=== PATIENT | female | born 1960 | race Caucasian/White ===

== ENCOUNTER 2021-04-02 10:44 | Outpatient (RCR) | payer MEDICARE, MEDICAID, SELFPAY ==
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
== END 2021-04-02 19:00 | disposition home or self-care (01) ==
LOC: PT 10:44
PROVIDERS: PCP Family Medicine Sports Medicine; Referring Provider Family Medicine Sports Medicine; Visit Provider Family Medicine Sports Medicine
DX: G35 Multiple sclerosis (principal)
CPT/HCPCS: 97162

== ENCOUNTER → 2022-04-09 | Outpatient (CLI) | payer MEDICARE, MEDICAID, SELFPAY ==
[2022-04-09 12:26] LABS: Absolute Lymphocyte Count 1.73 X10^3/uL (0.83-4.51); Basophil# 0.03 X10^3/uL; Basophil% 0.5 % (0-1); Eosinophil# 0.11 X10^3/uL; Eosinophils% 1.7 % (0-5); Hematocrit 41.5 % (37-47); Hemoglobin 12.8 g/dL (12.0-15.0); Lymphocyte # 1.73 X10^3/ul (0.83-4.51); Lymphocyte % 26.5 % (19-41); Mean Corp Hgb Conc 30.8 g/dL (32-36); Mean Corpuscular Hgb 30.5 pg (27.0-32.0); Mean Corpuscular Volume 98.8 fL (81-99); Mean Platelet Vol. 10.4 fl (6.2-12.0); Monocyte% 10.7 % (0-10); NRBC Flagged by Analyzer 0 % (0-5); Neutrophil # 3.95 X10^3/uL (2.7-7.7); Neutrophil % 60.3 % (47-70); Platelet Count 242 K/mm3 (150-450); RBC Distribution Width CV 15.8 % (11.6-14.6); RBC Distribution Width SD 57.1 fl (35.1-43.9); White Blood Count 6.5 K/mm3 (4.4-11.0)
[2022-04-09 12:44] LABS: T3 Total - Triiodothyronine 1.04 ng/mL (0.6-1.81)
[2022-04-09 12:48] LABS: AST(SGOT) 21 U/L (15-37); Alanine Aminotransfer ALT/SGPT 21 U/L (13-56); Albumin, Serum 3.6 g/dL (3.2-5.0); Alkaline Phosphatase 94 U/L (45-117); Anion Gap 9 (5-15); BUN 16 mg/dL (7-18); BUN/Creat Ratio 5.9 RATIO (10-20); Calcium,Total 10.2 mg/dL (8.5-10.1); Chloride 101 mmol/L (98-107); Cholesterol 166 mg/dL (200); Creatinine, Serum 2.69 mg/dL (0.55-1.02); EST Glomerular Filtration Rate 19 mL/min (>60); Est Glom Filt Rate - Afr Amer 23 mL/min (>60); Globulin 3.6 g/dL (2.2-4.2); Glucose 116 mg/dL (74-106); High Density Lipoprotein 48 mg/dL; Potassium 3.4 mmol/L (3.5-5.1); Protein, Total 7.2 g/dL (6.4-8.2); Sodium Level 139 mmol/L (136-145); T4 Free Direct 1.18 ng/dL (0.76-1.46); Thyroid Stim Hormone (TSH) 1.33 uIU/mL (0.358-3.74); Triglycerides 216 mg/dL; Very Low Density Lipoprotein 43 mg/dL (5-40)
[2022-04-09 16:50] LABS: Free T3 2.7 pg/mL (2.18-3.98)
== END | disposition home or self-care (01) ==
LOC: MFPLAB 10:13
PROVIDERS: PCP Family Medicine Sports Medicine; Visit Provider Family Medicine
DX: E03.9 Hypothyroidism, unspecified (principal); I25.10 Atherosclerotic heart disease of native coronary artery without angina pectoris
CPT/HCPCS: 36415; 80053; 80061; 84439; 84443; 84480; 84481; 85025

== ENCOUNTER → 2022-04-22 | Outpatient (CLI) | payer MEDICARE, MEDICAID, SELFPAY | END | disposition home or self-care (01) | PROVIDERS: PCP Family Medicine Sports Medicine; Referring Provider Family Medicine; Visit Provider Family Medicine | DX: R30.9 Painful micturition, unspecified (principal) | CPT/HCPCS: 87077; 87086; 87088; 87186 ==

== ENCOUNTER 2022-04-30 17:40 | Emergency (ER) | payer MEDICARE, MEDICAID, SELFPAY ==
[2022-04-30 17:43] VITALS: BP 157/106; PULSE 91; RESP 18; TEMP 36.3; O2SAT 98; BMI 29.2
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
[2022-04-30 19:07] LABS: Absolute Neutrophil Count 6.1 X10^3/uL (2.0-7.7); Basophil# 0.04 X10^3/uL; Basophil% 0.5 % (0-1); Eosinophil# 0.15 X10^3/uL; Eosinophils% 1.7 % (0-5); Hematocrit 41.4 % (37-47); Lymphocyte % 20.5 % (19-41); Mean Corp Hgb Conc 31.4 g/dL (32-36); Mean Corpuscular Hgb 30.4 pg (27.0-32.0); Mean Corpuscular Volume 96.7 fL (81-99); Mean Platelet Vol. 10.1 fl (6.2-12.0); Monocyte# 0.64 X10^3/uL; Monocyte% 7.3 % (0-10); NRBC Flagged by Analyzer 0 % (0-5); Neutrophil % 69.7 % (47-70); Platelet Count 254 K/mm3 (150-450); RBC Distribution Width CV 14.9 % (11.6-14.6); RBC Distribution Width SD 52.8 fl (35.1-43.9); Red Blood Count 4.28 M/mm3 (4.2-5.4); White Blood Count 8.8 K/mm3 (4.4-11.0)
[2022-04-30 19:49] LABS: Anion Gap 11 (5-15); BUN 27 mg/dL (7-18); BUN/Creat Ratio 8.7 RATIO (10-20); Calcium,Total 10.7 mg/dL (8.5-10.1); Chloride 102 mmol/L (98-107); Creatinine, Serum 3.09 mg/dL (0.55-1.02); EST Glomerular Filtration Rate 16 mL/min (>60); Est Glom Filt Rate - Afr Amer 20 mL/min (>60); Glucose 144 mg/dL (74-106); Potassium 3.3 mmol/L (3.5-5.1); Sodium Level 139 mmol/L (136-145)
[2022-04-30 19:57] LABS: Amphetamine Urine VISTA NEGATIVE (<1000 ng/mL); Barbiturate Urine VISTA NEGATIVE (< 200 ng/mL); Benzodiazepine Urine VISTA NEGATIVE (< 200 ng/mL); Cocaine Urine VISTA NEGATIVE (< 300 ng/mL); Ecstacy Urine VISTA NEGATIVE (< 500 ng/mL); Methadone Urine VISTA NEGATIVE (< 300 ng/mL); PCP Urine VISTA NEGATIVE (< 25 ng/mL); THC Urine VISTA NEGATIVE (< 50 ng/mL); Vista UDS pH Range 6
[2022-04-30 20:05] LABS: Alcohol, Blood (Medical)-Serum < 3.0 mg/dL
--- NOTE | 2022-04-30 20:12 | NURSING ---
CALLED CRISIS AT 2012
[2022-05-01] VITALS (11 sets, daily range): BP systolic 127–172; BP diastolic 65–91; PULSE 75–88; RESP 14–18; TEMP 35.7–36.6; O2SAT 93–100
[2022-05-01 00:56] LABS: Bedside Glucose 109 mg/dL (74-106)
[2022-05-01] MEDS: Carvedilol 3.125 MG TABLET PO ×2 (01:50→14:14)
[2022-05-01] MEDS: Atorvastatin Calcium 40 MG Tablet PO (01:50)
--- NOTE | 2022-05-01 06:21 | ED.RN ---
patient has been denied by [facility] at this time
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
--- NOTE | 2022-05-01 10:26 | CASEMGMT ---
HENRY received a call from Nayeli at [facility] [employer]. She asked about patient's whereabouts. They have received a referral for patient. Nayeli received a call this am from [facility] ([facility]) as patient did not show up for dialysis this am. Patient's daughter told [facility] that patient went to the hospital yesterday and was transferred to another facility which she did not know. HENRY let Nayeli know patient is still in the Emergency Department. HENRY passed along a message to [facility] ED HENRY. Brianda Carson BUTTON BREAKER OPERATOR ROB
--- NOTE | 2022-05-01 11:07 | CM.ED ---
HENRY Note HENRY called Jenny at Crisis. Jenny said that the only place that is reviewing patient is [facility] in [place]. Jenny said that all other facilities have declined patient including [facility], [facility] and [place]. HENRY called Suzie at [facility] and they do not take dialysis patients. HENRY called [facility] and spoke to Ebony VERDUGO and gave referral. HENRY had Devan RN attempt to give report however, the MD declined patient as they felt a bed more local is appropriate. HENRY left voice mail for Jenny at Crisis Updating her. HENRY called [facility]. Spoke to Leah.The MD is reviewing a diaylsis patient from [facility] but if he declines the patient they will review [facility] patient. HENRY updated Jenny at Crisis and advised her of review of patient at [facility]. She agreed to fax referral. HENRY called Devan at [facility] and updated her that no psych facility had been located for patient and she remains in the ED. Plan: TO be determined Jacki MENDOSA
[2022-05-01 13:25] LABS: Bedside Glucose 124 mg/dL (74-106)
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
--- NOTE | 2022-05-01 14:25 | CM.ED ---
SW Note SW received accepting information from Jenny at [facility]. Accepting MD is Dr. Mg. Patient is accepted at [facility] [address] [address] . RN to RN [phone] option #2. Patient's bed will not be ready till after 9pm. Expansion Envelope Maker Hand Tana scheduled transport for patient. Patient will leave [facility] at 6:30pm HENRY called Maddie at RN to RN number and advised patient was leaving at 6:30pm and will arrive at 9pm to [facility]. HENRY advised patient that she is going to [facility] for psych treatment. HENRY called Devan at [facility] and advised in voice mail that patient is going to [facility] for psych HENRY called Anahi at [facility] and updated her regarding patient's status and discharge plan. Anahi said that she will call [facility] and update them regarding patient's discharge plan. Plan: [facility] Jacki MENDOSA
[2022-05-01 16:46] LABS: Bedside Glucose 125 mg/dL (74-106)
== END 2022-05-01 20:18 ==
PROVIDERS: Emergency Provider Emergency Medicine; PCP Family Medicine; Visit Provider Emergency Medicine
DX: Z00.8 Encounter for other general examination (principal); G93.1 Anoxic brain damage, not elsewhere classified; Z99.2 Dependence on renal dialysis; E11.22 Type 2 diabetes mellitus with diabetic chronic kidney disease; I12.9 Hypertensive chronic kidney disease with stage 1 through stage 4 chronic kidney disease, or unspecified chronic kidney disease; N18.9 Chronic kidney disease, unspecified; E78.5 Hyperlipidemia, unspecified; Z95.1 Presence of aortocoronary bypass graft; Z79.899 Other long term (current) drug therapy; Z86.16 Personal history of COVID-19; Z86.73 Personal history of transient ischemic attack (TIA), and cerebral infarction without residual deficits
CPT/HCPCS: 80048; 80307; 82077; 82962; 85025; 99285

== ENCOUNTER → 2022-06-05 | Outpatient (REF) | payer MEDICARE, MEDICAID, SELFPAY ==
[2022-06-05 09:22] LABS: Hematocrit 28.6 % (37-47); Mean Corp Hgb Conc 31.5 g/dL (32-36); Mean Corpuscular Hgb 31.1 pg (27.0-32.0); Mean Platelet Vol. 10.5 fl (6.2-12.0); Platelet Count 173 K/mm3 (150-450); RBC Distribution Width CV 15.3 % (11.6-14.6); RBC Distribution Width SD 54.9 fl (35.1-43.9); Red Blood Count 2.89 M/mm3 (4.2-5.4)
[2022-06-05 09:43] LABS: ALB/GLOB Ratio 1.1 RATIO (0.9-2.4); AST(SGOT) 18 U/L (15-37); Alanine Aminotransfer ALT/SGPT 24 U/L (13-56); Albumin, Serum 3.3 g/dL (3.2-5.0); Alkaline Phosphatase 94 U/L (45-117); Anion Gap 6 (5-15); BUN 52 mg/dL (7-18); BUN/Creat Ratio 13.6 RATIO (10-20); Calcium,Total 9.6 mg/dL (8.5-10.1); Chloride 99 mmol/L (98-107); Cholesterol 93 mg/dL (200); Creatinine, Serum 3.81 mg/dL (0.55-1.02); EST Glomerular Filtration Rate 13 mL/min (>60); Est Glom Filt Rate - Afr Amer 15 mL/min (>60); Globulin 3.1 g/dL (2.2-4.2); Glucose 106 mg/dL (74-106); High Density Lipoprotein 53 mg/dL; Potassium 4.5 mmol/L (3.5-5.1); Protein, Total 6.4 g/dL (6.4-8.2); Sodium Level 137 mmol/L (136-145); Triglycerides 65 mg/dL; Very Low Density Lipoprotein 13 mg/dL (5-40)
[2022-06-05 10:19] LABS: Hemoglobin A1c 6.6 % (3.8-5.6)
== END | disposition home or self-care (01) ==
LOC: OLS.SW300 04:00
PROVIDERS: PCP Family Medicine Sports Medicine; Visit Provider Family Medicine
DX: E11.9 Type 2 diabetes mellitus without complications (principal)
CPT/HCPCS: 36415; 80053; 80061; 83036; 85027

== ENCOUNTER → 2022-06-16 | Outpatient (REF) | payer MEDICARE, MEDICAID, SELFPAY ==
[2022-06-17 08:43] LABS: Mucous, Urine 0 SEEN /hpf (<or=2+)
[2022-06-17 09:28] LABS: Color, Urine Yellow (Yellow); Glucose, Dipstick Normal (Normal); Ketone-Dipstick Negative (Negative); Leukocyte Esterase-Dipstick 500 /ul (Negative); Nitrite-Dipstick Negative (Negative); Occult Blood-Urine 250 /ul (Negative); Protein-Dipstick 30 mg/dl (Negative); Specific Gravity, Urine 1.005 (1.002-1.030); Urine Bilirubin Dipstick Negative (Negative); Urine Clarity Sl. Cloudy (Clear); Urine Urobilinogen Normal (Normal)
[2022-06-17 09:35] LABS: Bacteria 2+ /hpf (None Seen); Red Blood Cells-Urine 25-50 SEEN /hpf (0-5); Squamous Epithelial Cells - UA 0-5 SEEN /hpf (5-10); White Blood Cells 25-50 SEEN /hpf (0-5)
== END | disposition home or self-care (01) ==
LOC: OLS.SW300 08:42
PROVIDERS: PCP Family Medicine Sports Medicine; Visit Provider Family Medicine
DX: R35.0 Frequency of micturition (principal)
CPT/HCPCS: 81001; 87077; 87086; 87088; 87186

== ENCOUNTER → 2022-06-19 | Outpatient (REF) | payer SELFPAY ==
[2022-06-19 08:16] LABS: Hematocrit 29.7 % (37-47); Hemoglobin 8.8 g/dL (12.0-15.0); Mean Corp Hgb Conc 29.6 g/dL (32-36); Mean Corpuscular Hgb 31.5 pg (27.0-32.0); Mean Corpuscular Volume 106.5 fL (81-99); POSITIVE MORPHOLOGY YES; Platelet Count 165 K/mm3 (150-450); RBC Distribution Width CV 18.1 % (11.6-14.6); RBC Distribution Width SD 69.4 fl (35.1-43.9); Red Blood Count 2.79 M/mm3 (4.2-5.4); White Blood Count 6.8 K/mm3 (4.4-11.0)
[2022-06-19 08:52] LABS: ALB/GLOB Ratio 1.1 RATIO (0.9-2.4); AST(SGOT) 16 U/L (15-37); Alanine Aminotransfer ALT/SGPT 19 U/L (13-56); Albumin, Serum 3.5 g/dL (3.2-5.0); Alkaline Phosphatase 102 U/L (45-117); Anion Gap 6 (5-15); BUN 61 mg/dL (7-18); BUN/Creat Ratio 12.5 RATIO (10-20); Calcium,Total 9.8 mg/dL (8.5-10.1); Chloride 101 mmol/L (98-107); Creatinine, Serum 4.88 mg/dL (0.55-1.02); EST Glomerular Filtration Rate 10 mL/min (>60); Est Glom Filt Rate - Afr Amer 12 mL/min (>60); Globulin 3.2 g/dL (2.2-4.2); Glucose 164 mg/dL (74-106); Potassium 4.5 mmol/L (3.5-5.1); Protein, Total 6.7 g/dL (6.4-8.2); Sodium Level 138 mmol/L (136-145)
[2022-06-19 08:56] LABS: Scan Indicated on CBC? Y/N YES- FLAGS NOTED
== END | disposition home or self-care (01) ==
LOC: OLS.SW300 05:00
PROVIDERS: PCP Family Medicine Sports Medicine; Visit Provider Family Medicine
DX: I10 Essential (primary) hypertension (principal)
CPT/HCPCS: 36415; 80053; 85027

== ENCOUNTER → 2022-07-17 | Outpatient (REF) | payer MEDICARE, MEDICAID, SELFPAY ==
[2022-07-17 07:38] LABS: Hematocrit 35.4 % (37-47); Hemoglobin 10.8 g/dL (12.0-15.0); Mean Corp Hgb Conc 30.5 g/dL (32-36); Mean Corpuscular Hgb 32.8 pg (27.0-32.0); Mean Corpuscular Volume 107.6 fL (81-99); Mean Platelet Vol. 9.8 fl (6.2-12.0); POSITIVE MORPHOLOGY YES; Platelet Count 138 K/mm3 (150-450); RBC Distribution Width CV 17.2 % (11.6-14.6); RBC Distribution Width SD 68.5 fl (35.1-43.9); Red Blood Count 3.29 M/mm3 (4.2-5.4); White Blood Count 5.6 K/mm3 (4.4-11.0)
[2022-07-17 07:44] LABS: Scan Indicated on CBC? Y/N YES- FLAGS NOTED
[2022-07-17 07:58] LABS: ALB/GLOB Ratio 0.9 RATIO (0.9-2.4); AST(SGOT) 25 U/L (15-37); Alanine Aminotransfer ALT/SGPT 26 U/L (13-56); Alkaline Phosphatase 128 U/L (45-117); Anion Gap 10 (5-15); BUN 62 mg/dL (7-18); BUN/Creat Ratio 11.6 RATIO (10-20); Calcium,Total 9.4 mg/dL (8.5-10.1); Chloride 98 mmol/L (98-107); Creatinine, Serum 5.36 mg/dL (0.55-1.02); EST Glomerular Filtration Rate 9 mL/min (>60); Est Glom Filt Rate - Afr Amer 10 mL/min (>60); Globulin 3.3 g/dL (2.2-4.2); Glucose 211 mg/dL (74-106); Potassium 4.4 mmol/L (3.5-5.1); Protein, Total 6.3 g/dL (6.4-8.2); Sodium Level 136 mmol/L (136-145)
== END ==
LOC: OLS.SW300 05:50
PROVIDERS: PCP Family Medicine Sports Medicine; Visit Provider Family Medicine
DX: E78.5 Hyperlipidemia, unspecified (principal); I12.0 Hypertensive chronic kidney disease with stage 5 chronic kidney disease or end stage renal disease; E11.22 Type 2 diabetes mellitus with diabetic chronic kidney disease; N18.9 Chronic kidney disease, unspecified
CPT/HCPCS: 36415; 80053; 85027

== ENCOUNTER 2022-07-20 09:40 | Emergency (ER) | payer MEDICARE, MEDICAID, SELFPAY ==
[2022-07-20] VITALS (9 sets, daily range): BP systolic 95–138; BP diastolic 50–86; PULSE 66–82; RESP 14–24; TEMP 35.9; O2SAT 95–100; BMI 42.0
--- NOTE | 2022-07-20 09:49 | CT_ITS ---
STUDY: CTA CHEST REASON FOR EXAM: Female, 61 years old. Syncope, pain RADIATION DOSAGE (If Supplied By Facility): CTDIvol = ( 18.5 ) mGy, DLP = ( 476.13 ) mGycm TECHNIQUE: The examination was performed with the intravenous administration of IV 100mL Isovue-370. Post-processing of the angiographic images was performed, with multiplanar reformation and 3D reconstruction. Individualized dose optimization techniques were used for this CT. COMPARISON: None. FINDINGS: Normal enhancement of the main pulmonary artery and right and left pulmonary arteries. Normal enhancement of the bilateral peripheral pulmonary arteries. There is no demonstrated pulmonary embolism. There is atherosclerotic calcification of the aortic arch with tortuosity. There is no demonstrated aortic dissection. Sternal cerclage wires and vascular clips are present from a prior sternotomy and coronary artery bypass graft procedure (CABG). There are calcifications of the coronary arteries. Normal mediastinum. Normal hilar regions. Normal visualized trachea and bronchi. The lungs are well expanded. Small left pleural effusion with left basilar atelectasis and/or infiltration . Normal pleura. Normal chest wall structures. There are degenerative changes of thoracic spine. Diffuse fatty infiltration of the liver. CT/CTA Chest W/WO Contrast IMPRESSION: Small left pleural effusion with left basilar infiltration and/or atelectasis. No evidence of pulmonary embolism. Electronically Signed: Moises Sharif MD at 10:46 EDT ,
--- NOTE | 2022-07-20 09:49 | EKG12_ITS ---
Test Reason : UNRESPONSIVE Blood Pressure : / mmHG Vent. Rate : 071 BPM Atrial Rate : 071 BPM P-R Int : 288 ms QRS Dur : 102 ms QT Int : 436 ms P-R-T Axes : 081 112 059 degrees QTc Int : 473 ms Sinus rhythm with 1st degree A-V block Low voltage QRS Left posterior fascicular block Nonspecific T wave abnormality Abnormal ECG Confirmed by GEORGE SCHWARTZ, LISSETT ([id number]), editor in chief newspaper ZOHAIB SAMUELS ([id number]) on 07/22/2022 9:38:32 AM Referred By: DUNIA Confirmed By:LISSETT VAZQUEZ MD
--- NOTE | 2022-07-20 09:49 | CT_ITS ---
STUDY: CT BRAIN WITHOUT CONTRAST REASON FOR EXAM: Female, 61 years old. Syncopal episode during dialysis. RADIATION DOSAGE (If Supplied By Facility): CTDIvol = ( 44.99 ) mGy, DLP = ( 1592.22 ) mGycm TECHNIQUE: Transaxial CT imaging of the brain was performed without administration of intravenous contrast material. Individualized dose optimization techniques were used for this CT. COMPARISON: No relevant priors. FINDINGS: Normal soft tissue structures. Normal calvarium. There is mild cerebral atrophy with widening of the extra-axial spaces and ventricular dilatation. There are areas of decreased attenuation within the white matter tracts of the supratentorial brain, consistent with microvascular disease changes. Lacunar infarcts seen in the posterior aspect of the insular cortex of the right temporal lobe as well as in the body of the right caudate nucleus. Normal brainstem. Normal cerebellum. There is no intracranial hemorrhage. There are no findings of an acute ischemic infarction. Atherosclerotic calcification of the vertebral arteries and cavernous portions of the internal carotid arteries bilaterally. Mucosal thickening of the maxillary sinus bilaterally. CT/Brain/Head without Contrast IMPRESSION: Chronic involutional changes of the brain. Electronically Signed: Moises Sharif MD at 10:24 EDT ,
--- NOTE | 2022-07-20 09:56 | EDS_ITS ---
HPI History of Present Illness Chief Complaint: Unresponsive Informant: patient, family and EMS Onset/Context/Timing Onset: Today Narrative Narrative: Patient presents from [facility] after becoming unresponsive during dialysis. Patient reportedly was at dialysis this morning and suddenly became unresponsive. EMS states they were told that she stopped breathing but after they placed a nonrebreather on her she started breathing again. There was no report that she ever lost her pulse. Daughter at bedside states that she was complaining last week of her tooth hurting. Otherwise she is usually alert and conversant and can move all 4 extremities. She ambulates with a walker. [facility] Medical History Anoxic brain injury Dialysis patient History of cardiac arrest History of myocardial infarction Hyperlipidemia Hypertension Kidney failure Multiple sclerosis Type 2 diabetes mellitus Home Medications carvedilol 3.125 mg tablet (Coreg) 3.125 mg PO BID 05/01/22 [History Last Taken Unknown] insulin lispro 100 unit/mL subcutaneous pen (Humalog KwikPen (U-100) Insulin) See Protocol subcut TIDCM 05/01/22 [History Last Taken Unknown] acetaminophen 325 mg tablet 650 mg PO Q6H PRN PAIN/FEVER 07/20/22 [History Last Taken Unknown] acetaminophen 650 mg rectal suppository 650 mg KY Q4H PRN PAIN/FEVER 07/20/22 [History Last Taken Unknown] aluminum-magnesium hydroxide 225 mg-200 mg/5 mL oral suspension 30 ml PO Q4H PRN PRN Indigestion 07/20/22 [History Last Taken Unknown] bisacodyl 10 mg rectal suppository 10 mg KY DAILY PRN Constipation 07/20/22 [History Last Taken Unknown] dextrose 40 % oral gel (Glucose Gel) 10 g PO Q15M PRN Hypoglycemia 07/20/22 [History Last Taken Unknown] gabapentin 300 mg tablet 300 mg PO QHS 07/20/22 [History Last Taken Unknown] glucagon 1 mg injection kit 1 mg IM PRN PRN Hypoglycemia 07/20/22 [History Last Taken Unknown] guaifenesin 200 mg/5 mL oral liquid 400 mg PO Q4H PRN Cough 07/20/22 [History Last Taken Unknown] insulin lispro 100 unit/mL subcutaneous pen 0 unit subcut QHS 07/20/22 [History Last Taken Unknown] loperamide 2 mg capsule 2 mg PO Q6H PRN Diarrhea 07/20/22 [History Last Taken Unknown] magnesium hydroxide 400 mg/5 mL oral suspension (Milk of Magnesia) 30 ml PO DAILY PRN Constipation 07/20/22 [History Last Taken Unknown] multivitamin with minerals 1 tab PO DAILY 07/20/22 [History Last Taken Unknown] nystatin 100,000 unit vaginal tablet 1 unit vaginal BID 07/20/22 [History Last Taken Unknown] nystatin 100,000 unit/gram topical powder 1 applic topical TID 07/20/22 [History Last Taken Unknown] sevelamer carbonate 800 mg tablet (Renvela) 800 mg PO TID 07/20/22 [History Last Taken Unknown] simvastatin 40 mg tablet 40 mg PO QHS 07/20/22 [History Last Taken Unknown] sodium phosphates 19 gram-7 gram/118 mL enema (Fleet Enema) 118 ml KY DAILY PRN Constipation 07/20/22 [History Last Taken Unknown] trazodone 50 mg tablet 25 mg PO QHS PRN Insomnia 07/20/22 [History Last Taken Unknown] Allergy/AdvReac Type Severity Reaction Status Date / Time Penicillins [PCN] Allergy Rash Verified 07/20/22 10:10 Surgical History History of hysterectomy History of quadruple bypass Social History Smoking Status: Never smoker ROS ROS ED ROS Narrative Patient resting with eyes closed. Will open eyes to command. Moans. When asked if anything hurts she states everything. Review of Systems ROS Unobtainable: due to mental status EXAM Physical Exam Const Vital Signs: 07/20/22 09:42 07/20/22 09:58 07/20/22 11:38 Temperature 96.6 F L Temperature Source Temporal Pulse Rate 82 66 Respiratory Rate 14 Blood Pressure 98/56 L 95/80 Blood Pressure Mean 70 85 Pulse Ox 99 100 95 Oxygen Delivery Method Non-Rebreather Non-Rebreather Room Air Oxygen Flow Rate (L/min) 15 07/20/22 11:39 07/20/22 12:00 07/20/22 13:00 Temperature Temperature Source Pulse Rate 67 Respiratory Rate Blood Pressure Blood Pressure Mean Pulse Ox 95 99 98 Oxygen Delivery Method Room Air Room Air Room Air Oxygen Flow Rate (L/min) 07/20/22 13:01 07/20/22 13:59 07/20/22 14:21 Temperature Temperature Source Pulse Rate 66 67 66 Respiratory Rate 15 24 H 20 H Blood Pressure 138/86 H 112/50 L Blood Pressure Mean 70 Pulse Ox 98 97 95 Oxygen Delivery Method Room Air Room Air Oxygen Flow Rate (L/min) Positive obese Nutritional Appearance: obese HEENT Reports moist mucous membranes Eyes PERRL Chest Wall inspection of chest normal and palpation of chest normal Resp normal respiratory effort and clear to auscultation bilaterally Cardio regular rate and regular rhythm GI non-tender Auscultation: hypoactive bowel sounds Palpation: soft Extremity Extremity Narrative: Moves all 4 extremities Neuro Neuro Narrative: Opens eyes to command. Moans. Spontaneously moves all 4 extremities. Skin no rashes or lesions noted MDM MDM MDM Narrative Medical decision making narrative: Patient sent for CT scan of the head along with CTA of the chest. Lab work obtained along with urinalysis. COVID and influenza swab obtained. Lab Data Attestation: I reviewed the patient's lab results. Labs: Laboratory Results - last 24 hr 07/20/22 07/20/22 07/20/22 09:45 09:45 11:35 WBC 6.3 RBC 3.54 L Hgb 11.3 L Hct 37.9 MCV 107.1 H MCH 31.9 MCHC 29.8 L RDW Std Deviation 66.5 H RDW Coeff of Khloe 16.7 H Plt Count 117 L MPV 9.7 Immature Gran % (Auto) 0.500 Neut % (Auto) 63.6 Lymph % (Auto) 24.4 [place] % (Auto) 8.1 Eos % (Auto) 2.9 Baso % (Auto) 0.5 Absolute Neuts (auto) 4.0 Absolute Lymphs (auto) 1.54 Nucleated RBC % 0 Anisocytosis 1+ Sodium 137 Potassium 5.2 H Chloride 101 Carbon Dioxide 26.0 Anion Gap 10 BUN 65 H Creatinine 5.39 H Estim Creat Clear Calc 8.56 Est GFR (MDRD) Af Amer 10 L Est GFR (MDRD) Non-Af 9 L BUN/Creatinine Ratio 12.1 Glucose 199 H Calcium 9.5 Total Bilirubin 1.10 H Direct Bilirubin 0.59 H AST 28 ALT 26 Alkaline Phosphatase 123 H Troponin I High Sens 24 Total Protein 6.6 Albumin 3.3 Globulin 3.3 Lipase 149 Urine Color Yellow Urine Clarity Clear Urine pH 5.0 Ur Specific [place] 1.015 Urine Protein 100 H Urine Glucose (UA) Normal Urine Ketones Negative Urine Occult Blood 25 H Urine Nitrite Negative Urine Bilirubin Negative Urine Urobilinogen Normal Ur Leukocyte Esterase 25 H Urine RBC 0-5 SEEN Urine WBC 0-5 SEEN Ur Squamous Epith Cells 0-5 SEEN Urine Bacteria 0 SEEN Urine Mucus 0 SEEN 07/20/22 12:05 WBC RBC Hgb Hct MCV MCH MCHC RDW Std Deviation RDW Coeff of Khloe Plt Count MPV Immature Gran % (Auto) Neut % (Auto) Lymph % (Auto) [place] % (Auto) Eos % (Auto) Baso % (Auto) Absolute Neuts (auto) Absolute Lymphs (auto) Nucleated RBC % Anisocytosis Sodium Potassium Chloride Carbon Dioxide Anion Gap BUN Creatinine Estim Creat Clear Calc Est GFR (MDRD) Af Amer Est GFR (MDRD) Non-Af BUN/Creatinine Ratio Glucose Calcium Total Bilirubin Direct Bilirubin AST ALT Alkaline Phosphatase Troponin I High Sens 31 Total Protein Albumin Globulin Lipase Urine Color Urine Clarity Urine pH Ur Specific [place] Urine Protein Urine Glucose (UA) Urine Ketones Urine Occult Blood Urine Nitrite Urine Bilirubin Urine Urobilinogen Ur Leukocyte Esterase Urine RBC Urine WBC Ur Squamous Epith Cells Urine Bacteria Urine Mucus Radiography Diagnostic Testing: Clinical Impression(s) from Imaging Studies Brain CT 07/20/22 09:49 IMPRESSION: Chronic involutional changes of the brain. Electronically Signed: Moises Sharif MD at 10:24 EDT , Chest CTA 07/20/22 09:49 IMPRESSION: Small left pleural effusion with left basilar infiltration and/or atelectasis. No evidence of pulmonary embolism. Electronically Signed: Moises Sharif MD at 10:46 EDT , EKG Initial EKG: Attestation: I personally reviewed and interpreted this EKG as follows: Interpretation: Sinus Rhythm (Sinus at 71 with no acute ischemia.) Treatment and Re-Evaluation Narrative: On repeat exam patient is alert and oriented speaking with family members at bedside. She has been weaned down to room air and is not hypoxic. Test results discussed with patient as well as family at bedside. EKG reveals no acute abnormalities. Head CT shows chronic changes only. CTA shows a small left pleural effusion but no evidence of PE. Lab work remarkable only for slightly high potassium at 5.2. BUN is 65 and creatinine 5.39. Glucose is 199. Troponin is negative x2. Urinalysis reveals no acute infection. I discussed with patient and daughters that ideally we would like to observe her for 24 hours to ensure no cardiac arrhythmia caused her syncopal episode. She unfortunately lost her at this hospital and is very upset by this and refuses to be admitted. I spoke with patient's primary care physician, Dr. Beckham. Because she has been watched on manager cardiac cath for 4 hours with no arrhythmia he is okay with her going back to the [facility]. I spoke with Dr. Thompson, nephrology on-call. Patient will get the rest of her dialysis tomorrow. Discharge Plan Triage Chief Complaint: Unresponsive ED Provider: Alla Serrato Dx/Rx/DC Orders Clinical Impression: Syncope Instructions: ED Fainting, Uncertain Cause Prescriptions: No Action carvedilol [Coreg] 3.125 mg Tablet 3.125 mg PO BID insulin lispro [Humalog KwikPen Insulin] 100 unit/mL Insulin Pen See Protocol SUBCUT TIDCM Protocol: 1. Sliding Scale Insulin Low Dosing Condition: 150-224 mg/dl = 1 unit Condition: 225-299 mg/dl = 2 units Condition: 300-374 mg/dl = 3 units Condition: 375-499 mg/dl = 4 units Condition: Greater than 449 call physician Protocol Text: - Use for Total Daily Dose of Insulin 15-27 units - Thin, elderly, renal patients LOW DOSING ALGORITHM Glucagon Emergency Kit 1 mg Kit 1 mg IM PRN PRN (Reason: Hypoglycemia) acetaminophen 325 mg Tablet 650 mg PO Q6H PRN (Reason: PAIN/FEVER) acetaminophen 650 mg Suppository 650 mg KY Q4H PRN (Reason: PAIN/FEVER) loperamide 2 mg Capsule 2 mg PO Q6H PRN (Reason: Diarrhea) trazodone 50 mg Tablet 25 mg PO QHS PRN (Reason: Insomnia) dextrose [Glucose Gel] 40 % Gel 10 g PO Q15M PRN (Reason: Hypoglycemia) Rx Instructions: until symptoms of low blood sugar are controlled simvastatin 40 mg Tablet 40 mg PO QHS nystatin 100,000 unit Tablet 1 unit VAGINAL BID magnesium hydroxide [Milk of Magnesia] 400 mg/5 mL Suspension 30 ml PO DAILY PRN (Reason: Constipation) bisacodyl 10 mg Suppository 10 mg KY DAILY PRN (Reason: Constipation) Antacid 225-200 mg/5 mL Suspension 30 ml PO Q4H PRN PRN (Reason: Indigestion) Fleet Enema 19-7 gram/118 mL Enema 118 ml KY DAILY PRN (Reason: Constipation) nystatin 100,000 unit/gram Powder 1 applic TOPICAL TID Renal Tablet 1 tab PO DAILY insulin lispro 100 unit/mL Insulin Pen 0 unit subcut QHS Rx Instructions: SLIDING SCALE guaifenesin 200 mg/5 mL Liquid 400 mg PO Q4H PRN (Reason: Cough) gabapentin 300 mg Tablet 300 mg PO QHS sevelamer carbonate [Renvela] 800 mg Tablet 800 mg PO TID Rx Instructions: must administer with a meal/food Primary Care Provider: Selvin Beckham Referrals: Jia Pérez MD [Non-Staff] - Disposition Disposition: [facility] Discharge Location: [facility] Discharge Date/Time: 07/20/22 15:16
[2022-07-20 10:01] LABS: Absolute Lymphocyte Count 1.54 X10^3/uL (0.83-4.51); Basophil# 0.03 X10^3/uL; Basophil% 0.5 % (0-1); Eosinophil# 0.18 X10^3/uL; Eosinophils% 2.9 % (0-5); Hematocrit 37.9 % (37-47); Hemoglobin 11.3 g/dL (12.0-15.0); Lymphocyte # 1.54 X10^3/ul (0.83-4.51); Lymphocyte % 24.4 % (19-41); Mean Corp Hgb Conc 29.8 g/dL (32-36); Mean Corpuscular Hgb 31.9 pg (27.0-32.0); Mean Corpuscular Volume 107.1 fL (81-99); Mean Platelet Vol. 9.7 fl (6.2-12.0); Monocyte# 0.51 X10^3/uL; Monocyte% 8.1 % (0-10); NRBC Flagged by Analyzer 0 % (0-5); Neutrophil # 4.02 X10^3/uL (2.7-7.7); Neutrophil % 63.6 % (47-70); POSITIVE MORPHOLOGY YES; Platelet Count 117 K/mm3 (150-450); RBC Distribution Width CV 16.7 % (11.6-14.6); RBC Distribution Width SD 66.5 fl (35.1-43.9); Red Blood Count 3.54 M/mm3 (4.2-5.4); White Blood Count 6.3 K/mm3 (4.4-11.0)
--- NOTE | 2022-07-20 10:09 | CM.ED ---
SW Note SW reviewed board and noted that patient was unresponsive. SW met with both daughters. Daughters indicated that they have been through this before . Daughter said that patient has been at [facility] and that they were told that patient is almost ready to go home. Daughters stated with days like this I am not sure that patient can live alone in an apartment. spoke to patient's daughter. Emotional support provided. No concerns voiced. SW remains available. Jacki MENDOSA
[2022-07-20 10:11] LABS: Differential Indicated SCAN CRITERIA MET
[2022-07-20 10:32] LABS: AST(SGOT) 28 U/L (15-37); Alanine Aminotransfer ALT/SGPT 26 U/L (13-56); Albumin, Serum 3.3 g/dL (3.2-5.0); Alkaline Phosphatase 123 U/L (45-117); Anion Gap 10 (5-15); Anisocytosis 1+; BUN 65 mg/dL (7-18); BUN/Creat Ratio 12.1 RATIO (10-20); Bilirubin, Direct 0.59 mg/dL (0.00-0.30); Calcium,Total 9.5 mg/dL (8.5-10.1); Chloride 101 mmol/L (98-107); Creatinine, Serum 5.39 mg/dL (0.55-1.02); EST Glomerular Filtration Rate 9 mL/min (>60); Est Glom Filt Rate - Afr Amer 10 mL/min (>60); Estimated Creatinine Clearance 8.56 ml/min; Globulin 3.3 g/dL (2.2-4.2); Glucose 199 mg/dL (74-106); Lipase 149 U/L (73-393); Potassium 5.2 mmol/L (3.5-5.1); Protein, Total 6.6 g/dL (6.4-8.2); Sodium Level 137 mmol/L (136-145); Troponin-I HS (w/2H Reflex) 24 pg/mL (3.0-54.0)
[2022-07-20 11:44] LABS: Bacteria 0 SEEN /hpf (None Seen); Mucous, Urine 0 SEEN /hpf (<or=2+)
[2022-07-20 11:50] LABS: Color, Urine Yellow (Yellow); Glucose, Dipstick Normal (Normal); Ketone-Dipstick Negative (Negative); Leukocyte Esterase-Dipstick 25 /ul (Negative); Nitrite-Dipstick Negative (Negative); Occult Blood-Urine 25 /ul (Negative); Protein-Dipstick 100 mg/dl (Negative); Specific Gravity, Urine 1.015 (1.002-1.030); Urine Bilirubin Dipstick Negative (Negative); Urine Clarity Clear (Clear); Urine Urobilinogen Normal (Normal)
[2022-07-20 11:58] LABS: Reflex Troponin-HS? (from REC) Y
[2022-07-20 11:59] LABS: Red Blood Cells-Urine 0-5 SEEN /hpf (0-5); Squamous Epithelial Cells - UA 0-5 SEEN /hpf (5-10); White Blood Cells 0-5 SEEN /hpf (0-5)
[2022-07-20 12:26] LABS: Troponin-I HS 31 pg/mL (3.0-54.0)
[2022-07-20] MEDS: Acetaminophen 325 MG Tablet 650 MG PO (12:33)
--- NOTE | 2022-07-20 14:33 | DIALYSIS ---
patient refusing admission, Dr. Thompson aware, patient can receive dialysis tomorrow at [facility], patient in ED room 2, daughters at bedside, MYRA AVF still accessed with 16G needles, +bruit +thrill however very faint about venous needles, no bruising noted, needles pulled and stasis achieved without issue, dressings applied, +bruit +thrill noted unchanged, report to ED RN
--- NOTE | 2022-07-20 15:15 | NURSING ---
[facility] called and Nurse Sophia received report.
== END 2022-07-20 15:16 ==
PROVIDERS: Emergency Provider Emergency Medicine; PCP Family Medicine; Visit Provider Emergency Medicine
DX: R55 Syncope and collapse (principal); Z99.2 Dependence on renal dialysis; G35 Multiple sclerosis; E11.9 Type 2 diabetes mellitus without complications; Z79.4 Long term (current) use of insulin; I25.2 Old myocardial infarction; I10 Essential (primary) hypertension; N19 Unspecified kidney failure; E78.5 Hyperlipidemia, unspecified; Z79.899 Other long term (current) drug therapy; Z86.74 Personal history of sudden cardiac arrest
CPT/HCPCS: 36415; 70450; 71275; 80048; 80076; 81001; 83690; 84484; 85025; 87040; 87086; 87428; 93005; 99285; Q9967; A4216

== ENCOUNTER → 2022-07-27 | Outpatient (REF) | payer MEDICARE, MEDICAID, SELFPAY ==
[2022-07-27 09:07] LABS: Absolute Lymphocyte Count 1.07 X10^3/uL (0.83-4.51); Absolute Neutrophil Count 4.4 X10^3/uL (2.0-7.7); Basophil# 0.04 X10^3/uL; Basophil% 0.6 % (0-1); Eosinophil# 0.15 X10^3/uL; Eosinophils% 2.4 % (0-5); Hematocrit 38.3 % (37-47); Hemoglobin 11.2 g/dL (12.0-15.0); Lymphocyte # 1.07 X10^3/ul (0.83-4.51); Lymphocyte % 17.2 % (19-41); Mean Corp Hgb Conc 29.2 g/dL (32-36); Mean Corpuscular Hgb 31.5 pg (27.0-32.0); Mean Corpuscular Volume 107.6 fL (81-99); Mean Platelet Vol. 9.8 fl (6.2-12.0); Monocyte% 8.1 % (0-10); NRBC Flagged by Analyzer 0 % (0-5); Neutrophil # 4.42 X10^3/uL (2.7-7.7); Neutrophil % 71.2 % (47-70); POSITIVE MORPHOLOGY YES; Platelet Count 179 K/mm3 (150-450); RBC Distribution Width SD 66.9 fl (35.1-43.9); Red Blood Count 3.56 M/mm3 (4.2-5.4); White Blood Count 6.2 K/mm3 (4.4-11.0)
[2022-07-27 09:13] LABS: Differential Indicated SCAN CRITERIA MET
[2022-07-27 09:17] LABS: AST(SGOT) 22 U/L (15-37); Alanine Aminotransfer ALT/SGPT 26 U/L (13-56); Albumin, Serum 3.4 g/dL (3.2-5.0); Alkaline Phosphatase 144 U/L (45-117); Anion Gap 12 (5-15); BUN 66 mg/dL (7-18); BUN/Creat Ratio 10.9 RATIO (10-20); Calcium,Total 9.6 mg/dL (8.5-10.1); Chloride 96 mmol/L (98-107); Cholesterol 74 mg/dL (200); Creatinine, Serum 6.04 mg/dL (0.55-1.02); EST Glomerular Filtration Rate 8 mL/min (>60); Est Glom Filt Rate - Afr Amer 9 mL/min (>60); Globulin 3.5 g/dL (2.2-4.2); Glucose 184 mg/dL (74-106); High Density Lipoprotein 47 mg/dL; Potassium 4.9 mmol/L (3.5-5.1); Protein, Total 6.9 g/dL (6.4-8.2); Sodium Level 138 mmol/L (136-145); Triglycerides 68 mg/dL; Very Low Density Lipoprotein 14 mg/dL (5-40)
[2022-07-27 09:46] LABS: Hemoglobin A1c 6.8 % (3.8-5.6)
[2022-07-27 10:04] LABS: Anisocytosis 1+; Platelet Estimate ADEQUATE (ADEQ); Red Cell Morphology N CHROM NORMAL (NORM C&C)
== END ==
LOC: OLS.SW300 05:00
PROVIDERS: PCP Family Medicine; Visit Provider Family Medicine
DX: I12.0 Hypertensive chronic kidney disease with stage 5 chronic kidney disease or end stage renal disease (principal); E11.22 Type 2 diabetes mellitus with diabetic chronic kidney disease; N18.6 End stage renal disease; Z99.2 Dependence on renal dialysis
CPT/HCPCS: 36415; 80053; 80061; 83036; 85025